=== PATIENT | female | born 1950 | race Asian ===

== ENCOUNTER → 2016-06-30 | Outpatient (CLI) | payer MEDICARE, MEDICAID ==
[~2016-06-30] MED LIST: ALLO100T30 PO; ALLO300T PO; AMLO10TA2 PO; AMLO5TAB2 PO; ANAS1TAB PO; ASPI-496 PO; ATEN100T PO; ATOR80TA75 PO; BRIMONIDINE LEFTEYE; CHOL200021 PO; CLON0.1T PO; CYAN100028 PO; DOCU100T3 PO; ERGO500017 PO; FERR325T20 PO; FURO40TA6 PO; INSU100I18 SQ-INSULIN; INSU100I28 SQ-INSULIN; LISI-167 PO; METO50TA82 PO; NITR0.4T8 SL; TRAM50TA2 PO
[2016-06-30 13:58] LABS: BLOOD UREA NITROGEN 64 mg/dL (7-18)
== END | disposition home or self-care (01) ==
LOC: LAB 11:08
PROVIDERS: ATTEND Internal Medicine Cardiovascular Disease
DX: E78.5 Hyperlipidemia, unspecified (principal); I10 Essential (primary) hypertension
CPT/HCPCS: 36415; 80048; 80061

== ENCOUNTER → 2016-07-22 | Outpatient (CLI) | payer MEDICARE, MEDICAID ==
[2016-07-22 12:19] LABS: BLOOD UREA NITROGEN 117 mg/dL (7-18)
== END | disposition home or self-care (01) ==
LOC: LAB 11:37
PROVIDERS: ATTEND Internal Medicine Cardiovascular Disease
DX: I25.10 Atherosclerotic heart disease of native coronary artery without angina pectoris (principal)
CPT/HCPCS: 36415; 80048

== ENCOUNTER → 2016-07-31 | Outpatient (CLI) | payer MEDICARE, MEDICAID ==
[2016-07-31 13:17] LABS: PTH INTACT INTERPRETATION ** Comment **
[2016-07-31 13:37] LABS: HEMOGLOBIN 13.5 g/dL (11.7-16.4)
[2016-07-31 13:52] LABS: BLOOD UREA NITROGEN 109 mg/dL (7-18)
[2016-07-31 13:55] LABS: ASPARTATE AMINO TRANSFERASE 16 U/L (15-37); TOTAL IRON BINDING CAPACITY 393 mcg/dL (250-450)
[2016-07-31 14:00] LABS: PARATHYROID HORMONE INTACT 128.5 pg/mL (14-72)
== END | disposition home or self-care (01) ==
LOC: LAB 13:12
PROVIDERS: ATTEND Internal Medicine Nephrology
DX: I12.9 Hypertensive chronic kidney disease with stage 1 through stage 4 chronic kidney disease, or unspecified chronic kidney disease (principal); E11.22 Type 2 diabetes mellitus with diabetic chronic kidney disease; E11.29 Type 2 diabetes mellitus with other diabetic kidney complication; D63.1 Anemia in chronic kidney disease; N18.4 Chronic kidney disease, stage 4 (severe); I25.810 Atherosclerosis of coronary artery bypass graft(s) without angina pectoris; E78.3 Hyperchylomicronemia
CPT/HCPCS: 36415; 80053; 80061; 81001; 82306; 82310; 82570; 82728; 82784; 83036; 83540; 83550; 83735; 83883; 83970; 84100; 84155; 84156; 84165; 84550; 85025; 86334

== ENCOUNTER 2016-08-09 20:32 | Inpatient (IN) | payer MEDICARE, MEDICAID ==
[~2016-08-09] VITALS: Ht 160 cm; Wt 100.2 kg
[2016-08-09] MEDS ORDERED: SODIUM CHLORIDE FLUSH 10ML SYR IVF ONE (21:00)
[2016-08-09 21:47] LABS: ASPARTATE AMINO TRANSFERASE 20 U/L (15-37)
[2016-08-09 22:19] LABS: BLOOD UREA NITROGEN 225 mg/dL (7-18)
[2016-08-09] MEDS ORDERED: SODIUM CHLORIDE 0.9% 1,000 ML IV ONE (22:29)
[2016-08-09] MEDS ORDERED: INSULIN REGULAR 100 UNITS/ML, 3ML VIAL IVPush ONE (22:30)
[2016-08-09] MEDS ORDERED: SODIUM BICARB 8.4%, 50ML SYRINGE IVPush ONE (22:30)
[2016-08-09] MEDS: SODIUM CHLORIDE 0.9% 1,000ML IVBOLUS ONE ×2 (22:30→22:50)
[2016-08-09] MEDS ORDERED: CALCIUM CHLORIDE 10%, 10ML SYR IVPush ONE (22:30)
[2016-08-09] MEDS ORDERED: ALBUTEROL SULFATE 2.5 MG/3 ML NPPB ONE (22:30)
[2016-08-09] MEDS ORDERED: DEXTROSE 50%, 50ML SYRINGE IVPush ONE (22:30)
[2016-08-09] MEDS ORDERED: ALBUTEROL SULFATE 2.5 MG/3 ML ONE (22:34)
[2016-08-09] MEDS ORDERED: DEXTROSE 50%, 50ML SYRINGE ONE (22:46)
[2016-08-09] MEDS ORDERED: CALCIUM CHLORIDE 10%, 10ML SYR ONE (22:47)
[2016-08-09] MEDS ORDERED: INSULIN REGULAR 100 UNITS/ML, 3ML VIAL ONE (22:47)
[2016-08-09] MEDS ORDERED: NPH,100V SQ ×2 (23:39)
[2016-08-09] MEDS ORDERED: INSU100V5 SQ-INSULIN ×2 (23:39)
[2016-08-09] MEDS ORDERED: CARB15DR EACHEYE (23:39)
[2016-08-09] MEDS ORDERED: LISI2.5T PO (23:39)
[2016-08-10] MEDS ORDERED: BISACODYL 10 MG SUPP PR PRN
[2016-08-10] MEDS ORDERED: POLYETHYLENE GLYCOL 17 GM PACKET PO PRN
[2016-08-10] MEDS ORDERED: DOCUSATE 100 MG CAPSULE PO PRN
[2016-08-10] MEDS ORDERED: ONDANSETRON 2MG/ML, 2ML IVP PRN
[2016-08-10] MEDS ORDERED: OXYcodone IR 5MG TABLET PO PRN
[2016-08-10 00:30] VITALS: BP 108/72
[2016-08-10 00:32] VITALS: BP 108/72
[2016-08-10] MEDS: SODIUM BICARB 8.4%,50ML SYR. 75 MEQ in SODIUM CHLORIDE 0.45% 1,000 ML IV SCH ×3 (01:26→18:34)
[2016-08-10 03:48] LABS: BLOOD UREA NITROGEN 228 mg/dL (7-18)
[2016-08-10] MEDS ORDERED: INSULIN ASPART 100 UNITS/ML, PEN SQ-INSULIN ONE (04:30)
[2016-08-10 05:44] LABS: ASPARTATE AMINO TRANSFERASE 27 U/L (15-37)
[2016-08-10] MEDS ORDERED: METOPROLOL TARTRATE 50 MG TABLET PO SCH (06:00)
[2016-08-10 06:35] VITALS: BP 145/75
[2016-08-10] MEDS: INSULIN ASPART 100 UNITS/ML, PEN SQ-INSULIN SCH ×4 (07:00→21:01)
[2016-08-10 07:05] LABS: BLOOD UREA NITROGEN 223 mg/dL (7-18)
[2016-08-10] MEDS ORDERED: PROPOFOL 10 MG/ML, 100ML IV ONE (08:00)
[2016-08-10] MEDS ORDERED: PROPOFOL 10 MG/ML, 20ML ONE (08:00)
[2016-08-10] MEDS ORDERED: VECURONIUM 10 MG ONE (08:00)
[2016-08-10] MEDS: BRIMONIDINE LEFTEYE SCH ×2 (09:00→21:00)
[2016-08-10] MEDS: ARTIFICIAL TEARS OPHTH SOLN 15ML EACHEYE SCH ×2 (09:00→21:00)
[2016-08-10] MEDS: ASPIRIN 81 MG TABLET EC PO SCH (09:00)
[2016-08-10 11:54] LABS: PTH INTACT INTERPRETATION ** Comment **
[2016-08-10] MEDS ORDERED: PROPOFOL 100 ML IV PRN (13:24)
[2016-08-10] MEDS ORDERED: PHARMACY MAY ADJ FOR RENAL FX MC SCH (13:30)
[2016-08-10] MEDS ORDERED: LIDOCAINE-MPF 1%, 2ML ENDO PRN (13:30)
[2016-08-10] MEDS ORDERED: NOREPINEPHRINE 1 MG/ML, 4ML ONE (13:30)
[2016-08-10] MEDS ORDERED: LACTULOSE 20 GM/30 ML UDC NG PRN (13:30)
[2016-08-10 13:59] LABS: BLOOD UREA NITROGEN 147 mg/dL (7-18)
[2016-08-10 14:40] LABS: ABG COLLECTION SITE RIGHT BRACHIAL
[2016-08-10] MEDS: METRONIDAZOLE PMX 500MG/100ML 100 ML IV SCH ×2 (14:58→22:42)
[2016-08-10] MEDS: DEXMEDETOMIDINE 200 MCG in SODIUM CHLORIDE 0.9% 48 ML IV PRN ×2 (14:59→18:38)
[2016-08-10] MEDS ORDERED: SODIUM CHLORIDE 0.9% 1,000ML IVBOLUS ONE (15:00)
[2016-08-10 15:24] LABS: POTASSIUM,URINE RANDOM 28 mmol/L
[2016-08-10] MEDS: HEPARIN 5,000 UNITS/ML, 1ML SQ SCH (18:39)
[2016-08-10 20:55] LABS: BLOOD UREA NITROGEN 117 mg/dL (7-18)
[2016-08-10] MEDS: ATORVASTATIN 80 MG TABLET PO SCH (21:01)
[2016-08-10] MEDS: MORPHINE SULFATE 4 MG/ML, 1ML IVPush PRN (22:05)
[2016-08-10] MEDS ORDERED: ACETAMINOPHEN 325 MG TABLET PO PRN (22:30)
[2016-08-11] MEDS: NOREPINEPHRINE 4 MG in SODIUM CHLORIDE 0.9% 246 ML IV PRN ×2 (00:51→16:09)
[2016-08-11] MEDS: HEPARIN 5,000 UNITS/ML, 1ML SQ SCH ×3 (03:08→17:14)
[2016-08-11] MEDS: SODIUM BICARB 8.4%,50ML SYR. 75 MEQ in SODIUM CHLORIDE 0.45% 1,000 ML IV SCH (03:08)
[2016-08-11] MEDS: INSULIN ASPART 100 UNITS/ML, PEN SQ-INSULIN SCH ×4 (03:09→21:24)
[2016-08-11 04:34] LABS: ABG COLLECTION SITE RIGHT RADIAL; COLLATERAL CIRCULATION TESTING NORMAL
[2016-08-11 05:00] LABS: ASPARTATE AMINO TRANSFERASE 110 U/L (15-37)
[2016-08-11 05:01] LABS: BLOOD UREA NITROGEN 116 mg/dL (7-18)
[2016-08-11 05:06] LABS: DIFF TOTAL CELLS COUNTED 100 CELL DIFF
[2016-08-11 05:09] LABS: ANISOCYTOSIS 1+; OVALOCYTES 1+
[2016-08-11 05:10] LABS: SCHISTOCYTES 1+
[2016-08-11] MEDS: DEXMEDETOMIDINE 200 MCG in SODIUM CHLORIDE 0.9% 48 ML IV PRN ×3 (05:11→16:23)
[2016-08-11] MEDS: METRONIDAZOLE PMX 500MG/100ML 100 ML IV SCH ×3 (06:08→23:34)
[2016-08-11 06:38] LABS: VERIFY COUNTS? YES
[2016-08-11] MEDS ORDERED: ACETAMINOPHEN 650 MG/20.3 ML UDC ONE (07:37)
[2016-08-11] MEDS: MORPHINE SULFATE 4 MG/ML, 1ML IVPush PRN ×4 (07:39→19:55)
[2016-08-11] MEDS ORDERED: VANCOMYCIN 1,300 MG in SODIUM CHLORIDE 0.9% 250 ML IV ONE (08:30)
[2016-08-11] MEDS: SODIUM CHLORIDE 0.45% 1,000 ML IV SCH ×2 (09:41→17:12)
[2016-08-11] MEDS: ASPIRIN 81 MG TABLET EC PO SCH (09:41)
[2016-08-11] MEDS: ACETAMINOPHEN 650 MG/20.3 ML UDC PO PRN (09:43)
[2016-08-11] MEDS ORDERED: VANCOMYCIN PER PHARMACY MC PRN (11:00)
[2016-08-11] MEDS ORDERED: PHARMACOKINETIC MONITORING MC PRN (11:00)
[2016-08-11] MEDS: ACETAMINOPHEN 650 MG SUPP PR PRN (13:58)
[2016-08-11] MEDS: ARTIFICIAL TEARS OPHTH SOLN 15ML EACHEYE SCH ×2 (13:58→21:24)
[2016-08-11] MEDS: BRIMONIDINE LEFTEYE SCH ×2 (13:59→21:00)
[2016-08-11] MEDS: MEROPENEM 500 MG in SODIUM CHLORIDE 0.9% 100 ML IV SCH ×2 (14:00→21:17)
[2016-08-11] MEDS ORDERED: AMIODARONE 150 MG in DEXTROSE 5% 100 ML IV ONE (17:00)
[2016-08-11] MEDS ORDERED: FILTER 0.22 MICRON IV PRN (17:00)
[2016-08-11] MEDS: AMIODARONE 900 MG in DEXTROSE 5% 482 ML IV PRN (17:01)
[2016-08-11] MEDS: ATORVASTATIN 80 MG TABLET PO SCH (21:24)
[2016-08-11 22:09] LABS: PARATHYROID HORMONE INTACT 252.1 pg/mL (14-72)
[2016-08-11 23:32] LABS: HEP B SURF. AB < 3.1 mIU/mL (0.0-10.0)
[2016-08-11] MEDS: SODIUM CHLORIDE 0.9% 1,000 ML IV SCH (23:33)
[2016-08-12] MEDS: HEPARIN 5,000 UNITS/ML, 1ML SQ SCH ×3 (01:00→17:24)
[2016-08-12] MEDS: DEXMEDETOMIDINE 200 MCG in SODIUM CHLORIDE 0.9% 48 ML IV PRN (02:31)
[2016-08-12] MEDS: MORPHINE SULFATE 4 MG/ML, 1ML IVPush PRN (02:32)
[2016-08-12] MEDS: INSULIN ASPART 100 UNITS/ML, PEN SQ-INSULIN SCH ×4 (03:36→21:05)
[2016-08-12 04:32] LABS: ABG COLLECTION SITE RIGHT RADIAL; COLLATERAL CIRCULATION TESTING NORMAL
[2016-08-12 05:02] LABS: BLOOD UREA NITROGEN 84 mg/dL (7-18)
[2016-08-12] MEDS: SODIUM CHLORIDE 0.9% 1,000 ML IV SCH ×2 (05:19→08:47)
[2016-08-12] MEDS: MEROPENEM 500 MG in SODIUM CHLORIDE 0.9% 100 ML IV SCH ×3 (05:22→22:00)
[2016-08-12 05:55] LABS: DIFF TOTAL CELLS COUNTED 100 CELL DIFF
[2016-08-12 06:00] LABS: ANISOCYTOSIS 1+; VERIFY COUNTS? YES
[2016-08-12] MEDS: METRONIDAZOLE PMX 500MG/100ML 100 ML IV SCH (06:22)
[2016-08-12] MEDS: ARTIFICIAL TEARS OPHTH SOLN 15ML EACHEYE SCH ×2 (08:41→21:04)
[2016-08-12] MEDS: ASPIRIN 81 MG TABLET EC PO SCH (08:42)
[2016-08-12] MEDS: BRIMONIDINE LEFTEYE SCH ×2 (08:45→21:00)
[2016-08-12] MEDS ORDERED: MEROPENEM 500 MG in SODIUM CHLORIDE 0.9% 50 ML IV SCH ×2 (09:30→13:30)
[2016-08-12] MEDS: FENTANYL PF 2,500 MCG in SODIUM CHLORIDE 0.9% 200 ML IV PRN (10:28)
[2016-08-12] MEDS: NOREPINEPHRINE 8 MG in SODIUM CHLORIDE 0.9% 242 ML IV PRN ×3 (10:49→22:36)
[2016-08-12] MEDS: ALBUMIN HUMAN 25% 100 ML IV SCH ×2 (12:51→21:04)
[2016-08-12] MEDS ORDERED: OMNIPAQUE 350 MG/ML, 100ML BOTTLE ONE (15:06)
[2016-08-12] MEDS ORDERED: VASOPRESSIN 100 UNIT in SODIUM CHLORIDE 0.9% 495 ML IV PRN (17:00)
[2016-08-12] MEDS: AMIODARONE 900 MG in DEXTROSE 5% 482 ML IV PRN (17:35)
[2016-08-12] MEDS: ATORVASTATIN 80 MG TABLET PO SCH (21:05)
[2016-08-12] MEDS: ACETAMINOPHEN 650 MG/20.3 ML UDC PO PRN (22:31)
[2016-08-13] MEDS ORDERED: CALCIUM CHLORIDE 13.6 MEQ in SODIUM CHLORIDE 0.9% 100 ML IV ONE
[2016-08-13] MEDS ORDERED: MAGNESIUM SULFATE PMX 2GM/50ML 50 ML IV ONE
[2016-08-13] MEDS ORDERED: DOPAMINE/D5W PMX 250 ML ONE (00:37)
[2016-08-13 00:38] LABS: ABG COLLECTION SITE LEFT BRACHIAL
[2016-08-13 00:50] LABS: ASPARTATE AMINO TRANSFERASE 288 U/L (15-37); BLOOD UREA NITROGEN 89 mg/dL (7-18)
[2016-08-13] MEDS ORDERED: DOPAMINE/D5W PMX 250 ML IV PRN (01:00)
[2016-08-13] MEDS ORDERED: SODIUM BICARBONATE 1 MEQ/ML, 50ML VIAL IVPush PRN (01:00)
[2016-08-13] MEDS: HEPARIN 5,000 UNITS/ML, 1ML SQ SCH ×3 (02:12→18:17)
[2016-08-13] MEDS: ALBUMIN HUMAN 25% 100 ML IV SCH ×3 (03:32→20:31)
[2016-08-13] MEDS: INSULIN ASPART 100 UNITS/ML, PEN SQ-INSULIN SCH ×4 (03:33→21:52)
[2016-08-13] MEDS: NOREPINEPHRINE 8 MG in SODIUM CHLORIDE 0.9% 242 ML IV PRN ×3 (03:39→20:30)
[2016-08-13 04:41] LABS: ABG COLLECTION SITE LEFT RADIAL; COLLATERAL CIRCULATION TESTING NORMAL
[2016-08-13 04:59] LABS: BLOOD UREA NITROGEN 93 mg/dL (7-18)
[2016-08-13] MEDS: MEROPENEM 500 MG in SODIUM CHLORIDE 0.9% 100 ML IV SCH ×2 (05:25→15:57)
[2016-08-13 06:42] LABS: DIFF TOTAL CELLS COUNTED 100 CELL DIFF
[2016-08-13 06:46] LABS: ANISOCYTOSIS 1+; VERIFY COUNTS? YES
[2016-08-13 06:48] LABS: POIKILOCYTOSIS 1+; SPHEROCYTES 1+
[2016-08-13] MEDS: BRIMONIDINE LEFTEYE SCH ×2 (09:00→21:53)
[2016-08-13] MEDS: ARTIFICIAL TEARS OPHTH SOLN 15ML EACHEYE SCH ×2 (09:52→21:45)
[2016-08-13 11:30] LABS: HIT LOT CART23704/KIT23705
[2016-08-13] MEDS: FENTANYL PF 2,500 MCG in SODIUM CHLORIDE 0.9% 200 ML IV PRN (12:57)
[2016-08-13 13:12] LABS: HIT OBC PASS; HIT RESULT NEGATIVE (NEGATIVE)
[2016-08-13] MEDS ORDERED: VANCOMYCIN 1,400 MG in SODIUM CHLORIDE 0.9% 250 ML IV ONE (15:00)
[2016-08-13] MEDS: LINEZOLID PMX 600MG/300ML 300 ML IV SCH (15:57)
[2016-08-13] MEDS: ATORVASTATIN 80 MG TABLET PO SCH (21:45)
[2016-08-13] MEDS: AMIODARONE 900 MG in DEXTROSE 5% 482 ML IV PRN (23:38)
[2016-08-14] MEDS: LINEZOLID PMX 600MG/300ML 300 ML IV SCH ×2 (01:18→17:37)
[2016-08-14] MEDS: HEPARIN 5,000 UNITS/ML, 1ML SQ SCH ×3 (01:18→17:36)
[2016-08-14] MEDS: ACETAMINOPHEN 650 MG/20.3 ML UDC PO PRN (02:49)
[2016-08-14] MEDS: INSULIN ASPART 100 UNITS/ML, PEN SQ-INSULIN SCH ×4 (03:30→21:49)
[2016-08-14 04:44] LABS: ABG COLLECTION SITE LEFT RADIAL; COLLATERAL CIRCULATION TESTING NORMAL
[2016-08-14 04:57] LABS: BLOOD UREA NITROGEN 45 mg/dL (7-18)
[2016-08-14 05:11] LABS: DIFF TOTAL CELLS COUNTED 100 CELL DIFF
[2016-08-14 05:13] LABS: ANISOCYTOSIS 1+; POLYCHROMASIA 1+
[2016-08-14 05:14] LABS: POIKILOCYTOSIS 1+; SPHEROCYTES 1+; TARGET CELLS 1+
[2016-08-14] MEDS: ALBUMIN HUMAN 25% 100 ML IV SCH ×3 (05:14→20:03)
[2016-08-14 05:15] LABS: LARGE PLATELETS 1+; VERIFY COUNTS? YES
[2016-08-14] MEDS: BRIMONIDINE LEFTEYE SCH ×2 (09:00→21:47)
[2016-08-14] MEDS: MEROPENEM 500 MG in SODIUM CHLORIDE 0.9% 100 ML IV SCH (09:53)
[2016-08-14] MEDS: ARTIFICIAL TEARS OPHTH SOLN 15ML EACHEYE SCH ×2 (09:53→21:47)
[2016-08-14] MEDS: ASPIRIN 81 MG TABLET CHEW PO SCH (09:54)
[2016-08-14] MEDS: NOREPINEPHRINE 8 MG in SODIUM CHLORIDE 0.9% 242 ML IV PRN ×2 (09:54→11:18)
[2016-08-14 12:44] LABS: ASPARTATE AMINO TRANSFERASE 305 U/L (15-37)
[2016-08-14] MEDS: ATORVASTATIN 80 MG TABLET PO SCH (21:47)
[2016-08-15] VITALS (7 sets, daily range): BP systolic 103–112; BP diastolic 47–79
[2016-08-15] MEDS: LINEZOLID PMX 600MG/300ML 300 ML IV SCH ×2 (01:37→12:46)
[2016-08-15] MEDS: HEPARIN 5,000 UNITS/ML, 1ML SQ SCH ×2 (01:38→09:57)
[2016-08-15] MEDS: NOREPINEPHRINE 8 MG in SODIUM CHLORIDE 0.9% 242 ML IV PRN ×3 (03:27→23:45)
[2016-08-15] MEDS: INSULIN ASPART 100 UNITS/ML, PEN SQ-INSULIN SCH ×4 (03:30→21:11)
[2016-08-15] MEDS: AMIODARONE 900 MG in DEXTROSE 5% 482 ML IV PRN (04:28)
[2016-08-15 04:48] LABS: ABG COLLECTION SITE LEFT RADIAL; COLLATERAL CIRCULATION TESTING NORMAL
[2016-08-15 05:09] LABS: BLOOD UREA NITROGEN 42 mg/dL (7-18)
[2016-08-15 05:14] LABS: ASPARTATE AMINO TRANSFERASE 271 U/L (15-37)
[2016-08-15] MEDS: ALBUMIN HUMAN 25% 100 ML IV SCH ×3 (05:27→21:11)
[2016-08-15 05:48] LABS: DIFF TOTAL CELLS COUNTED 100 CELL DIFF
[2016-08-15 06:02] LABS: ANISOCYTOSIS 1+; GIANT PLATELETS 1+; LARGE PLATELETS 1+; VERIFY COUNTS? YES
[2016-08-15 06:04] LABS: POLYCHROMASIA 1+
[2016-08-15 06:05] LABS: MICROCYTOSIS 1+
[2016-08-15 06:07] LABS: TARGET CELLS 1+
[2016-08-15 06:08] LABS: SPHEROCYTES 1+
[2016-08-15] MEDS: BRIMONIDINE LEFTEYE SCH ×2 (09:00→20:53)
[2016-08-15] MEDS: MEROPENEM 500 MG in SODIUM CHLORIDE 0.9% 100 ML IV SCH (09:57)
[2016-08-15] MEDS: ASPIRIN 81 MG TABLET CHEW PO SCH (09:57)
[2016-08-15] MEDS: ARTIFICIAL TEARS OPHTH SOLN 15ML EACHEYE SCH ×2 (09:57→21:11)
[2016-08-15] MEDS ORDERED: PANTOPRAZOLE 40 MG IV IVPush SCH (17:00)
[2016-08-15] MEDS: ACETAMINOPHEN 650 MG SUPP PR PRN (21:02)
[2016-08-15] MEDS: ATORVASTATIN 80 MG TABLET PO SCH (21:11)
[2016-08-16 00:30] VITALS: BP 101/59
[2016-08-16] MEDS: LINEZOLID PMX 600MG/300ML 300 ML IV SCH (01:23)
[2016-08-16] MEDS: ALBUMIN HUMAN 25% 100 ML IV SCH ×3 (04:01→20:22)
[2016-08-16] MEDS: INSULIN ASPART 100 UNITS/ML, PEN SQ-INSULIN SCH ×4 (04:11→20:27)
[2016-08-16] MEDS: PANTOPRAZOLE 40 MG IV IVPush SCH ×3 (04:13→20:22)
[2016-08-16 05:09] LABS: ABG COLLECTION SITE NOT DOCUMENTED
[2016-08-16 05:10] LABS: BLOOD UREA NITROGEN 75 mg/dL (7-18)
[2016-08-16 05:28] LABS: DIFF TOTAL CELLS COUNTED 100 CELL DIFF
[2016-08-16 05:31] LABS: ANISOCYTOSIS 1+; MICROCYTOSIS 1+; POLYCHROMASIA 1+; VERIFY COUNTS? YES
[2016-08-16 05:32] LABS: LARGE PLATELETS 1+; SPHEROCYTES 1+; TARGET CELLS 1+
[2016-08-16] MEDS: MEROPENEM 500 MG in SODIUM CHLORIDE 0.9% 100 ML IV SCH (08:31)
[2016-08-16] MEDS: NOREPINEPHRINE 8 MG in SODIUM CHLORIDE 0.9% 242 ML IV PRN ×2 (08:31→19:00)
[2016-08-16] MEDS: ARTIFICIAL TEARS OPHTH SOLN 15ML EACHEYE SCH ×2 (08:31→20:22)
[2016-08-16] MEDS: BRIMONIDINE LEFTEYE SCH ×2 (09:00→21:00)
[2016-08-16 10:06] LABS: DIFF TOTAL CELLS COUNTED 100 CELL DIFF
[2016-08-16 10:11] LABS: ANISOCYTOSIS 1+; MICROCYTOSIS 1+; POLYCHROMASIA 1+; VERIFY COUNTS? YES
[2016-08-16 10:12] LABS: SPHEROCYTES 1+; TARGET CELLS 1+
[2016-08-16 10:14] LABS: LARGE PLATELETS 1+
[2016-08-16] MEDS ORDERED: CEFTAROLINE 400 MG in SODIUM CHLORIDE 0.9% 100 ML IV SCH (13:30)
[2016-08-16] MEDS: AMIODARONE 900 MG in DEXTROSE 5% 482 ML IV PRN (13:55)
[2016-08-16] MEDS: CEFTAROLINE 400 MG in SODIUM CHLORIDE 0.9% 100 ML IV SCH (14:24)
[2016-08-16] MEDS: INSULIN DETEMIR 100 UNITS/ML, PEN SQ-INSULIN SCH (17:53)
[2016-08-16] MEDS ORDERED: SODIUM CHLORIDE 0.9% 1,000 ML IV SCH (20:30)
[2016-08-17] MEDS: NOREPINEPHRINE 8 MG in SODIUM CHLORIDE 0.9% 242 ML IV PRN (01:13)
[2016-08-17] MEDS: CEFTAROLINE 400 MG in SODIUM CHLORIDE 0.9% 100 ML IV SCH ×2 (01:18→13:30)
[2016-08-17] MEDS ORDERED: PHENYLEPHRINE 20 MG in SODIUM CHLORIDE 0.9% 248 ML IV PRN (01:30)
[2016-08-17] MEDS: ALBUMIN HUMAN 25% 100 ML IV SCH ×3 (02:26→19:27)
[2016-08-17] MEDS: INSULIN ASPART 100 UNITS/ML, PEN SQ-INSULIN SCH ×4 (05:36→23:38)
[2016-08-17] MEDS: INSULIN DETEMIR 100 UNITS/ML, PEN SQ-INSULIN SCH ×2 (05:36→17:00)
[2016-08-17] MEDS: NOREPINEPHRINE 16 MG in SODIUM CHLORIDE 0.9% 234 ML IV PRN (05:37)
[2016-08-17 06:55] LABS: ASPARTATE AMINO TRANSFERASE 241 U/L (15-37); BLOOD UREA NITROGEN 99 mg/dL (7-18)
[2016-08-17 07:36] LABS: DIFF TOTAL CELLS COUNTED 100 CELL DIFF
[2016-08-17 07:43] LABS: ANISOCYTOSIS 2+; HYPOCHROMIA 1+; MICROCYTOSIS 1+; VERIFY COUNTS? YES
[2016-08-17 07:44] LABS: MONOS WITH VACUOLES 1+; SCHISTOCYTES 1+; TARGET CELLS 2+
[2016-08-17] MEDS: BRIMONIDINE LEFTEYE SCH ×2 (09:00→21:00)
[2016-08-17] MEDS: MEROPENEM 500 MG in SODIUM CHLORIDE 0.9% 100 ML IV SCH (10:32)
[2016-08-17] MEDS: SODIUM ACETATE 75 MEQ in SODIUM CHLORIDE 0.45% 1,000 ML IV SCH ×2 (10:32→20:10)
[2016-08-17] MEDS: PANTOPRAZOLE 40 MG IV IVPush SCH ×2 (10:32→21:00)
[2016-08-17] MEDS ORDERED: RIFAMPIN 600 MG in SODIUM CHLORIDE 0.9% 100 ML IV SCH (11:30)
[2016-08-17] MEDS: ARTIFICIAL TEARS OPHTH SOLN 15ML EACHEYE SCH ×2 (13:24→21:00)
[2016-08-17] MEDS: AMIODARONE 900 MG in DEXTROSE 5% 482 ML IV PRN (20:11)
[2016-08-17] MEDS: ALBUTEROL SULFATE 2.5 MG/3 ML NPPB SCH (22:26)
[2016-08-18] MEDS: ALBUTEROL SULFATE 2.5 MG/3 ML NPPB SCH ×3 (02:48→10:48)
[2016-08-18] MEDS: CEFTAROLINE 400 MG in SODIUM CHLORIDE 0.9% 100 ML IV SCH (04:08)
[2016-08-18] MEDS: NOREPINEPHRINE 16 MG in SODIUM CHLORIDE 0.9% 234 ML IV PRN (04:08)
[2016-08-18] MEDS: INSULIN ASPART 100 UNITS/ML, PEN SQ-INSULIN SCH ×2 (04:09→11:49)
[2016-08-18] MEDS: ALBUMIN HUMAN 25% 100 ML IV SCH ×2 (04:09→11:52)
[2016-08-18 04:43] LABS: ASPARTATE AMINO TRANSFERASE 333 U/L (15-37)
[2016-08-18 04:46] LABS: BLOOD UREA NITROGEN 112 mg/dL (7-18)
[2016-08-18 04:50] LABS: ABG COLLECTION SITE LEFT RADIAL; COLLATERAL CIRCULATION TESTING NORMAL
[2016-08-18] MEDS ORDERED: INSULIN DETEMIR 100 UNITS/ML, PEN SQ-INSULIN SCH (05:00)
[2016-08-18 05:13] LABS: ANISOCYTOSIS 1+; HYPOCHROMIA 1+; MICROCYTOSIS 1+; TARGET CELLS 2+
[2016-08-18 05:14] LABS: SPHEROCYTES 1+
[2016-08-18] MEDS: SODIUM ACETATE 75 MEQ in SODIUM CHLORIDE 0.45% 1,000 ML IV SCH (07:13)
[2016-08-18] MEDS: BRIMONIDINE LEFTEYE SCH (09:00)
[2016-08-18] MEDS: MEROPENEM 500 MG in SODIUM CHLORIDE 0.9% 100 ML IV SCH (09:17)
[2016-08-18] MEDS: PANTOPRAZOLE 40 MG IV IVPush SCH (09:17)
[2016-08-18] MEDS: ARTIFICIAL TEARS OPHTH SOLN 15ML EACHEYE SCH (09:17)
[2016-08-18] MEDS ORDERED: ALBUMIN HUMAN 25% 100 ML IV PRN (11:00)
[2016-08-18] MEDS ORDERED: ALBUMIN HUMAN 25% 50 ML IV PRN (11:00)
[2016-08-18 12:30] VITALS: BP 123/61
[2016-08-18 12:39] VITALS: BP 116/95
[2016-08-18 13:20] VITALS: BP 83/47
== END 2016-08-18 13:40 | disposition expired | DRG 870 ==
LOC: ED 21:02 → EDIP 23:30 → 4EST 08-10 00:20 → CCU 08-10 13:14
PROVIDERS: ADMIT Internal Medicine; ATTEND Internal Medicine
PROC: 0T9B70Z Drainage of Bladder with Drainage Device, Via Natural or Artificial Opening (ICD-10-PCS; 2016-08-09)
PROC: 0BH17EZ Insertion of Endotracheal Airway into Trachea, Via Natural or Artificial Opening (ICD-10-PCS; principal; 2016-08-10)
PROC: 5A1955Z Respiratory Ventilation, Greater than 96 Consecutive Hours (ICD-10-PCS; 2016-08-10)
PROC: 5A1D60Z (ICD-10-PCS; 2016-08-10)
PROC: 02HV33Z Insertion of Infusion Device into Superior Vena Cava, Percutaneous Approach (ICD-10-PCS; 2016-08-10)
PROC: B548ZZA Ultrasonography of Superior Vena Cava, Guidance (ICD-10-PCS; 2016-08-10)
PROC: 30233N1 Transfusion of Nonautologous Red Blood Cells into Peripheral Vein, Percutaneous Approach (ICD-10-PCS; 2016-08-15)
PROC: 02HV33Z Insertion of Infusion Device into Superior Vena Cava, Percutaneous Approach (ICD-10-PCS; 2016-08-17)
PROC: B548ZZA Ultrasonography of Superior Vena Cava, Guidance (ICD-10-PCS; 2016-08-17)
PROC: 30233R1 Transfusion of Nonautologous Platelets into Peripheral Vein, Percutaneous Approach (ICD-10-PCS; 2016-08-18)
DX: A41.01 Sepsis due to Methicillin susceptible Staphylococcus aureus (principal); G93.41 Metabolic encephalopathy; I63.9 Cerebral infarction, unspecified; J96.01 Acute respiratory failure with hypoxia; N18.6 End stage renal disease; R65.21 Severe sepsis with septic shock; N17.9 Acute kidney failure, unspecified; E87.2 Acidosis; D62 Acute posthemorrhagic anemia; D68.69 Other thrombophilia; I47.1 Supraventricular tachycardia; I50.32 Chronic diastolic (congestive) heart failure; J98.11 Atelectasis; I13.2 Hypertensive heart and chronic kidney disease with heart failure and with stage 5 chronic kidney disease, or end stage renal disease; K92.2 Gastrointestinal hemorrhage, unspecified; Z99.11 Dependence on respirator [ventilator] status; B96.20 Unspecified Escherichia coli [E. coli] as the cause of diseases classified elsewhere; D63.1 Anemia in chronic kidney disease; D69.6 Thrombocytopenia, unspecified; E11.21 Type 2 diabetes mellitus with diabetic nephropathy; E11.22 Type 2 diabetes mellitus with diabetic chronic kidney disease; E11.51 Type 2 diabetes mellitus with diabetic peripheral angiopathy without gangrene; E11.65 Type 2 diabetes mellitus with hyperglycemia; E78.5 Hyperlipidemia, unspecified; E83.39 Other disorders of phosphorus metabolism; E86.9 Volume depletion, unspecified; E87.5 Hyperkalemia; G89.29 Other chronic pain; I25.2 Old myocardial infarction; I46.9 Cardiac arrest, cause unspecified; I48.0 Paroxysmal atrial fibrillation; J32.0 Chronic maxillary sinusitis; K80.20 Calculus of gallbladder without cholecystitis without obstruction; M10.9 Gout, unspecified; M19.90 Unspecified osteoarthritis, unspecified site; N30.90 Cystitis, unspecified without hematuria; Z16.12 Extended spectrum beta lactamase (ESBL) resistance; M54.9 Dorsalgia, unspecified; Z51.5 Encounter for palliative care; Z66 Do not resuscitate; Z79.4 Long term (current) use of insulin; Z79.811 Long term (current) use of aromatase inhibitors; Z85.3 Personal history of malignant neoplasm of breast; Z86.73 Personal history of transient ischemic attack (TIA), and cerebral infarction without residual deficits; Z87.891 Personal history of nicotine dependence; Z88.0 Allergy status to penicillin; Z92.3 Personal history of irradiation; Z99.2 Dependence on renal dialysis
CPT/HCPCS: 36415; 36556; 36600; 70450; 70551; 71010; 71260; 74177; 76700; 76770; 76937; 77001; 80048; 80053; 80061; 80202; 81001; 82010; 82140; 82247; 82248; 82306; 82310; 82330; 82436; 82533; 82803; 82805; 82947; 82962; 83010; 83036; 83605; 83615; 83735; 83970; 84100; 84133; 84145; 84300; 84439; 84443; 84478; 85014; 85018; 85025; 85384; 85610; 85651; 85730; 86022; 86140; 86704; 86706; 86850; 86860; 86880; 86900; 86923; 87040; 87070; 87077; 87081; 87086; 87147; 87186; 87205; 87324; 87340; 93005; 93306; 94002; 94003; 94640; 96361; 96374; 96375; C1894; J0712; J1265; J1644; J1815; J2020; J2185; J2405; J2704; J3010; J3370; J3490; J7613; P9047; Q9967; C1751; C9113; J0282; J1642; J2370; J3475; J7030; J7040; J7050; J7060; P9016; P9035